=== PATIENT | female | born 1975 | race Caucasian/White ===

== ENCOUNTER → 2022-02-12 15:09 | Outpatient (BNVA) | payer OTHER, SELFPAY | PROVIDERS: PCP Family Medicine; Visit Provider Physician Assistant Surgical | DX: Z13.89 Encounter for screening for other disorder (principal) ==

== ENCOUNTER 2022-02-15 09:04 | Outpatient (REF) | payer OTHER, SELFPAY ==
[2022-02-18 11:32] LABS: H Pylori Breath Test Negative (Negative)
== END 2022-02-15 09:05 | disposition home or self-care (01) ==
LOC: CF 09:04
PROVIDERS: Visit Provider Physician Assistant Surgical
DX: E66.01 Morbid (severe) obesity due to excess calories (principal); Z68.42 Body mass index [BMI] 45.0-49.9, adult
CPT/HCPCS: 36415; 83013

== ENCOUNTER 2022-02-20 07:18 | Outpatient (REF) | payer OTHER, SELFPAY ==
--- NOTE | 2022-02-20 07:26 | ECG_ITS ---
Test Reason : E66.01 Blood Pressure : / mmHG Vent. Rate : 074 BPM Atrial Rate : 074 BPM P-R Int : 164 ms QRS Dur : 082 ms QT Int : 414 ms P-R-T Axes : 042 -31 034 degrees QTc Int : 459 ms Normal sinus rhythm Left axis deviation Abnormal ECG No previous ECGs available Referred By: Vna Rosales Electronically Signed By:Zac Self
[2022-02-20 07:48] LABS: MANUAL DIFF FLAG NO
[2022-02-20 08:03] LABS: Basophils Percent Auto 0.6 % (0-2); Eosinophils Absolute Auto 0.3 X10*3/uL (0.0-0.4); Eosinophils Percent Auto 4.5 % (0-4); Hematocrit 44.1 % (37.0-47.0); Hemoglobin 14.6 g/dl (12.0-16.0); Imm Gran Abs Auto 0.01 X10*3/uL (0.00-0.03); Imm Gran Pct Auto 0.2 % (0.0-0.4); Lymphocytes Absolute Auto 1.8 X10*3/uL (1.2-4.9); Lymphocytes Percent Auto 27.9 % (20-40); Mean Corpuscular HGB Conc 33.1 g/dl (31.0-35.0); Mean Corpuscular Hemoglobin 29.1 pg (27.0-33.0); Mean Corpuscular Volume 87.8 fL (80.0-98.0); Mean Platelet Volume 9.7 fL (9.4-12.3); Monocytes Absolute Auto 0.5 X10*3/uL (0.1-1.2); Monocytes Percent Auto 7.2 % (2-11); Neutrophils Absolute Auto 3.8 x10*3/uL (2.0-8.3); Neutrophils Percent Auto 59.6 % (45-73); Platelet Count 226 X10*3/uL (160-400); Red Blood Count 5.02 X10*6/uL (4.20-5.50); White Blood Count 6.4 X10*3/uL (4.8-10.8)
[2022-02-20 08:34] LABS: Anion Gap 15 (12-20); Blood Urea Nitrogen 13 mg/dL (9-16); C Reactive Protein 1.48 mg/dL (< or = 0.50); Calcium 9.5 mg/dL (8.4-10.2); Carbon Dioxide 24 mmol/L (22-29); Chloride 102 mmol/L (96-108); Cholesterol 173 mg/dL; Estimated Glomerular Filt Rate > 60; Glucose Random 103 mg/dL (60-115); HDL Cholesterol 42 mg/dL; Iron 86 mcg/dL (30-160); LDL Cholesterol Calculated 116 mg/dl; Sodium 137 mmol/L (135-145); Triglycerides 77 mg/dL
[2022-02-20 08:37] LABS: Estimated Average Glucose 117 mg/dL; Hemoglobin A1c % 5.7 %
[2022-02-20 08:45] LABS: Percent Iron Saturation 22 % (15-50); Total Iron Binding Capacity 394 mcg/dL (228-428); Unsaturated Iron Binding 308 ug/dL
[2022-02-20 09:06] LABS: Folate 19.6 ng/mL (> or = 4.0); Vitamin B12 1169 pg/mL (200-900)
[2022-02-20 09:07] LABS: Ferritin 78 ng/mL (10-250); TSH reflex Free T4 2.32 uIU/mL (0.32-4.0)
[2022-02-21 16:01] LABS: Calcium (PTHI) 9.3 mg/dL (8.6-10.2); PTHI 37 pg/mL (16-77)
[2022-02-22 14:24] LABS: Vitamin D 25-OH Total 76.1 ng/mL (>30)
[2022-02-23 16:32] LABS: Zinc 85 mcg/dL (60-130)
[2022-02-24 10:07] LABS: Vitamin B1 12 nmol/L (8-30)
[2022-02-27 17:40] LABS: Vitamin A 52 mcg/dL (38-98)
== END 2022-02-20 07:19 | disposition home or self-care (01) ==
LOC: HO.LAB 07:18
PROVIDERS: PCP Family Medicine; Visit Provider Physician Assistant Surgical
DX: Z01.818 Encounter for other preprocedural examination (principal); E66.01 Morbid (severe) obesity due to excess calories
CPT/HCPCS: 36415; 80048; 80061; 82306; 82607; 82728; 82746; 83036; 83540; 83970; 84425; 84443; 84590; 84630; 85025; 86140; 93005

== ENCOUNTER → 2022-02-28 16:00 | Outpatient (BNVA) | payer OTHER, SELFPAY | PROVIDERS: PCP Family Medicine; Visit Provider Counselor Mental Health | DX: F50.81 Binge eating disorder (principal); G47.33 Obstructive sleep apnea (adult) (pediatric) | CPT/HCPCS: 90791 ==

== ENCOUNTER → 2022-03-07 08:17 | Outpatient (BNVA) | payer OTHER, SELFPAY | PROVIDERS: PCP Family Medicine; Visit Provider Dietitian, Registered | DX: E66.01 Morbid (severe) obesity due to excess calories (principal); Z71.3 Dietary counseling and surveillance | CPT/HCPCS: 97802 ==

== ENCOUNTER → 2022-03-14 16:00 | Outpatient (BNVA) | payer OTHER, SELFPAY | PROVIDERS: PCP Family Medicine; Visit Provider Counselor Mental Health | DX: G47.33 Obstructive sleep apnea (adult) (pediatric) (principal); F50.81 Binge eating disorder | CPT/HCPCS: 90834 ==

== ENCOUNTER 2022-03-16 08:02 | Outpatient (REF) | payer OTHER, SELFPAY ==
--- NOTE | ~2022-03-16 | XR_ITS ---
EXAMINATION: XR CHEST CLINICAL INFORMATION: Morbid obesity due to excess calories COMPARISON: None TECHNIQUE: 2 views of the chest were obtained. FINDINGS: Cardiac silhouette is normal in size. The lungs are well aerated. There is no lobar consolidation. No pleural effusion or pneumothorax. Mild degenerative changes of the spine. XR/XR chest 2V IMPRESSION: No acute pulmonary pathology.
== END 2022-03-16 08:03 | disposition home or self-care (01) ==
LOC: HO.XRAY 08:02
PROVIDERS: PCP Family Medicine; Visit Provider Physician Assistant Surgical
DX: E66.01 Morbid (severe) obesity due to excess calories (principal); E03.9 Hypothyroidism, unspecified; G47.30 Sleep apnea, unspecified
CPT/HCPCS: 71046

== ENCOUNTER 2022-04-04 09:32 | Outpatient (REF) | payer OTHER, SELFPAY ==
--- NOTE | ~2022-04-04 | US_ITS ---
EXAMINATION: US COMPLETE ABDOMEN WITH LIVER ELASTOGRAPHY CLINICAL INFORMATION: Obesity COMPARISON: None. TECHNIQUE: Real-time imaging of the abdominal viscera. Noninvasive ultrasound liver fibrosis assessment is performed using Lou ElastPQ point quantification shear wave elastography (2D-SWE) with a C5-2 MHz transducer. Multiple elastography samples are obtained. FINDINGS: PANCREAS: Normal. ABDOMINAL AORTA: The proximal, middle, and distal aortic segments are normal in caliber. INFERIOR VENA CAVA: Visualized portions are normal. LIVER: Liver echotexture is increased. Liver is normal in contour. The liver is enlarged.. No focal lesion or intrahepatic biliary duct dilatation. The right lobe measures 20 cm in length. The left lobe measures 12 cm in length. Portal flow is normal/hepatopedal Shear wave liver elastography median stiffness is 1.2 m/s (reference: normal median stiffness is 1.3 m/s or less). IQR/median stiffness to assess sampling precision is 0.3 (reference: good quality data set is IQR/median stiffness of 0.15 or less). GALLBLADDER: Gallbladder is normal in size. There are gallstones in the gallbladder. There may be adenomyomatosis of the gallbladder wall. Gallbladder wall does not appear thickened. COMMON BILE DUCT: Normal in caliber measuring 0.3 cm in diameter. RIGHT KIDNEY: Normal. No hydronephrosis. No renal calculi or focal parenchymal lesions. The kidney measures 11.2 cm in maximum dimension. LEFT KIDNEY: Normal. No hydronephrosis. No renal calculi or focal parenchymal lesions. The kidney measures 13 cm in maximum dimension. SPLEEN: Normal. The spleen measures 12.3 cm in maximum dimension. FREE FLUID: None. US/US abdomen comp w elastography IMPRESSION: 1. Impression: Enlarged echogenic liver probably representing fatty infiltration. Gallstones. 2. Liver elastography: Limited due to sampling error. REFERENCE: Society of Radiologists in Ultrasound Liver Stiffness Thresholds (2020): LIVER STIFFNESS THRESHOLDS: *Liver Stiffness equal or less than 1.3 m/s: High probability of being normal. *Liver Stiffness less than 1.7 m/s: In the absence of other known clinical signs, rules out compensated advanced chronic liver disease. *Liver Stiffness 1.7-2.1 m/s: Suggestive of compensated advanced chronic liver disease but need further test for confirmation. *Liver Stiffness over 2.1 m/s: Rules in compensated advanced chronic liver disease. *Liver Stiffness over 2.4 m/s: Suggestive of clinically significant portal hypertension. QUALITY OF DATA SET: *IQR/Median value equal or less than 0.15 implies a quality data set. *IQR/Median value over 0.15 implies a poor quality data set. SIGNIFICANT CHANGE FROM PRIOR EXAM: Significant change if liver stiffness measurement is 10% or greater from prior exam. OTHER CONSIDERATIONS: The stage of liver fibrosis may be overestimated in the setting of acute hepatitis, liver inflammation, elevated liver function tests, hepatic vascular congestion, obstructive cholestasis, non-fasting state, and infiltrative diseases such as amyloidosis and lymphoma. In some patients with NAFLD, the liver stiffness thresholds for compensated advanced chronic liver disease may be lower. In causes other than viral hepatitis and NAFLD, liver stiffness thresholds are not well established.
--- NOTE | ~2022-04-04 | FL_ITS ---
EXAMINATION: XR FLUOROSCOPY UPPER GI WITH AIR CLINICAL INFORMATION: Air-contrast upper GI examination. COMPARISON: None TECHNIQUE: Air-contrast upper GI examination. FINDINGS: There is normal apposition of the vocal cords while saying E . There is normal elevation of the soft palate while saying candy . Patient swallowed thin and thick barium and half-inch diameter barium tablet without difficulty. No nasopharyngeal reflux or tracheal aspiration. No Zenker's diverticulum or significant cricopharyngeal hypertrophy. There is normal esophageal motility without hiatal hernia or ulceration. No esophageal stricture identified. No gastroesophageal reflux was elicited including with water siphon test. The stomach demonstrates normal distensibility without abnormal mass or ulceration. There was no delay in gastric emptying. The duodenal bulb and sweep appeared unremarkable. FLUOROSCOPY TIME: 1.4 minutes DOSE AREA PRODUCT: 17.181 Gy-cm2 ([place]-centimeter squared) FL/FL upper GI w air IMPRESSION: Unremarkable examination.
== END 2022-04-04 09:33 | disposition home or self-care (01) ==
LOC: HO.US 09:32
PROVIDERS: Visit Provider Surgery
DX: E66.01 Morbid (severe) obesity due to excess calories (principal)
CPT/HCPCS: 74246; 76705; 76981

== ENCOUNTER → 2022-04-16 08:17 | Outpatient (BNVA) | payer OTHER, SELFPAY | PROVIDERS: PCP Family Medicine; Visit Provider Surgery | DX: E66.01 Morbid (severe) obesity due to excess calories (principal) ==

== ENCOUNTER → 2022-04-24 08:32 | Outpatient (REF) | payer OTHER, SELFPAY ==
--- NOTE | 2022-04-24 08:38 | CA_ITS ---
Transthoracic Echocardiogram Patient (Last, First, Middle): Ignacia Dillon, Gender: Female Date of : 1975 Age: 47 Procedure Date: 04/24/2022 Procedure Type: Transthoracic Echocardiogram Location: OP Height: 160.02 cm Weight: 116.58 kg BSA: 2.15 m2 Heart Rate: bpm BP: 110 / 70 mmHg Meter Tester Polyphase: VH/TO Referring MD: Demarco Nash MD Symptoms: R94.31 - Abnormal electrocardiogram [ECG] [EKG] Study Quality: Fair/Contrast ECG Rhythm: Sinus Conclusions: - The left ventricular systolic function is normal. The calculated ejection fraction is 62% by biplane method. - No obvious valvular pathology seen on this study. - There is mild dilatation of the ascending aorta measuring 3.80 cm. - Small plaque is seen in the sino tubular ridge. Findings Procedure Information Contrast agent, definity, is being given per protocol without apparent complications. Left Ventricle Normal left ventricular cavity size. There is mildly increased left ventricular wall thickness. The left ventricular systolic function is normal. The calculated ejection fraction is 62% by biplane method. There is no evidence of regional wall motion abnormalities. Diastolic function is normal for age. Right Ventricle Normal right ventricular cavity size and systolic function. Atria Both atria are normal in size. Aortic Valve There is a normal trileaflet aortic valve. There is no aortic valve stenosis. There is no aortic valve regurgitation. Mitral Valve The mitral valve appears normal. There is no mitral valve regurgitation. There is no mitral valve stenosis. Pulmonic Valve The pulmonic valve is likely normal. Tricuspid Valve There is mild tricuspid valve regurgitation. The pulmonary artery systolic pressure is normal. Great Vessels There is mild dilatation of the ascending aorta measuring 3.80 cm. Small plaque is seen in the sino tubular ridge. Venous The inferior vena cava is normal in size and collapses greater than 50% with inspiration. Pericardium/Pleural There is no evidence of pericardial effusion. Prior Study Comparison No prior study available for comparison. Recommendations, Care & Conclusions No obvious valvular pathology seen on this study. Measurements 2D Linear Measurements IVSd: 1.24 0.6-0.9/0.6-1.0 cm LVIDd: 4.58 3.9-5.3/4.2-5.9 cm LVIDd Index: 2.13 2.4-3.2/2.2-3.1 cm/m2 LVIDs: 2.89 2.0-3.6 cm LVPWd: 1.24 0.7-1.1 cm LA Diam: 3.40 2.7-3.8/3.0-4.0 cm LAIDs Index: 1.58 1.5-2.3 cm/m2 LV Mass: 266.06 67-162/88-224 g LV Mass Index: 123.75 43-95/49-115 g/m2 LVOT Diam: 2.40 3.0+(-)1.3 cm 2D Systolic Function EF 4C: 59.80 >55% EF 2C: 62.60 >55% EF BiP: 61.70 >55% Mitral Valve MV Pk E: 0.91 MV PK A: 0.63 MV Decel Time: 227.00 E/A: 1.50 E'Lateral: 9.79 E'Medial: 8.81 E/E' Med: 10.40 E/E' Lat: 9.30 PHT: 67.00 MVA PHT: 3.28 Decel Ventura: 4.01 Aortic Valve AoV Pk Yvan: 1.64 AoV Mn Yvan: 1.15 AoV VTI: 0.41 AoV Pk Grad: 11.00 Aov Mn Grad: 6.00 WEI Cont.VTI: 2.67 LVOT LVOT Pk Yvan: 0.89 LVOT Mn Yvan: 0.64 LVOT VTI: 0.24 LVOT Pk Grad: 3.00 LVOT Mn Grad: 2.00 LVOT Diam: 2.40 LVOT Area: 4.52 Diastolic Function MV Pk E: 0.91 MV Pk A: 0.63 E/A: 1.50 E'Medial: 8.81 E/E' Med: 10.40 E' Laterial: 9.79 E/E' Lat: 9.30 Right Ventricle TAPSE (mm): 27.70 TVS' Yvan: 13.80 Tricuspid Valve TR Pk Yvan: 2.31 TR Pk Grad: 21.00 RA Press: 3.00 RVSP: 24.00 Great Vessels Aorta Sinus of Valsalva: 3.37 2.0-3.[address] Ridge: 2.60 1.7-3.4 cm Ao Asc: 3.80 2.1-3.4 cm Updated in Other Vendor System with Status of Final Jean Robles MD electronically signed on 04/25/2022 9:36:18 AM with status of Final
--- NOTE | 2022-04-24 08:38 | CA_ITS ---
Acquisition Time: 2022-04-24 10:05:28 Total Exercise Time: 00:07:33 Test Indications: PREOP ABN EKG Medications: SEE CHART Protocol: MONIK Max HR: 153 BPM 87% of Pred: 174 BPM Max BP: 164/082 mmHG Max Work Load: 9.4 METS Exercise stress test with exercise 7 min 33 sec of Monik protocol achieving 88% MPHR, with moderate shortness of breath, without arrythmia, with normotensive response to exercise, without EKG changes meeting criteria for ischemia. In recovery her breathing returned to baseline normal. Test reviewed with Dr Self. Referred By: Demarco Nash Overread By: MARCO GONG
== END ==
LOC: HO.CARD 08:32
PROVIDERS: PCP Family Medicine; Visit Provider Surgery
DX: Z01.818 Encounter for other preprocedural examination (principal); R94.31 Abnormal electrocardiogram [ECG] [EKG]
CPT/HCPCS: 93017; 93306; Q9957

== ENCOUNTER 2022-07-12 08:06 | Outpatient (REF) | payer OTHER, SELFPAY | END 2022-07-12 08:07 | disposition home or self-care (01) | LOC: HO.LAB 08:06 | PROVIDERS: PCP Family Medicine; Visit Provider Physician Assistant Surgical | DX: Z13.89 Encounter for screening for other disorder (principal) ==

== ENCOUNTER 2022-07-20 12:04 | Inpatient (IN) | payer OTHER, SELFPAY ==
[2022-07-11 10:34] VITALS: BMI 44.7
[2022-07-12 08:22] LABS: MANUAL DIFF FLAG NO
[2022-07-12 08:44] LABS: Basophils Percent Auto 0.5 % (0-2); Eosinophils Absolute Auto 0.2 X10*3/uL (0.0-0.4); Eosinophils Percent Auto 3.3 % (0-4); Hematocrit 41.9 % (37.0-47.0); Hemoglobin 14.3 g/dl (12.0-16.0); Imm Gran Abs Auto 0.02 X10*3/uL (0.00-0.03); Imm Gran Pct Auto 0.3 % (0.0-0.4); Lymphocytes Absolute Auto 1.7 X10*3/uL (1.2-4.9); Lymphocytes Percent Auto 29.1 % (20-40); Mean Corpuscular HGB Conc 34.1 g/dl (31.0-35.0); Mean Corpuscular Hemoglobin 29.7 pg (27.0-33.0); Mean Corpuscular Volume 86.9 fL (80.0-98.0); Monocytes Absolute Auto 0.4 X10*3/uL (0.1-1.2); Monocytes Percent Auto 7.1 % (2-11); Neutrophils Absolute Auto 3.5 x10*3/uL (2.0-8.3); Neutrophils Percent Auto 59.7 % (45-73); Platelet Count 186 X10*3/uL (160-400); Red Blood Count 4.82 X10*6/uL (4.20-5.50); Red Cell Distribution Width 12.9 % (11.0-16.0); White Blood Count 5.8 X10*3/uL (4.8-10.8)
[2022-07-12 08:49] LABS: INTERNATIONAL NORM RATIO 1.1 (0.9-1.1); Prothrombin Time 12.7 SEC (10.0-13.1)
[2022-07-12 08:52] LABS: Partial Thromboplastin Time 33.2 SEC (26.0-36.4)
[2022-07-12 09:01] LABS: Estimated Average Glucose 103 mg/dL; Hemoglobin A1c % 5.2 %
[2022-07-12 09:17] LABS: Alanine Aminotransferase 22 U/L (0-31); Albumin Level 4.5 g/dL (3.5-5.0); Alkaline Phosphatase 60 U/L (39-117); Anion Gap 14 (12-20); Aspartate Amino Transferase 21 U/L (5-31); Bilirubin Direct 0.3 mg/dL (0.0-0.5); Bilirubin Total 0.7 mg/dL (0.0-1.0); Blood Urea Nitrogen 17 mg/dL (9-16); C Reactive Protein 1.43 mg/dL (< or = 0.50); Calcium 9.3 mg/dL (8.4-10.2); Carbon Dioxide 29 mmol/L (22-29); Chloride 102 mmol/L (96-108); Cholesterol 180 mg/dL; Creatinine Clr Calc Pharmacy 99.3; Estimated Glomerular Filt Rate > 60; Glucose Random 89 mg/dL (60-115); HDL Cholesterol 46 mg/dL; LDL Cholesterol Calculated 120 mg/dl; Potassium 4.3 mmol/L (3.3-5.1); Sodium 141 mmol/L (135-145); Total Protein 7.1 g/dL (6.5-8.0); Triglycerides 70 mg/dL
[2022-07-12 09:28] LABS: Insulin 6 uU/mL (2-29)
--- NOTE | 2022-07-14 15:53 | MHC.SHP ---
Pre-Procedural Eval Section A Date of Service: 07/14/22 The patient is an INPATIENT: Yes The History & Physical has been completed within 30 days and I have reviewed it.: Yes Section B Chief Complaint: obesity Relevant Family History (Specify if Yes): No Relevant Social History: None Present Medications: None Medical History: No relevant PMH History of Previous Operations: No relevant previous surgery Allergies: Allergies Allergy/AdvReac Type Severity Reaction Status Date / Time No Known Allergies Allergy Verified 07/11/22 10:03 Review of Systems Sugical H&P ROS: Negative: Constitution, Cardiovascular, Respiratory, Neurological, Psychiatric, Hem-Onc, Allergic/Immunologic, Gastrointestinal, Genitourinary, Musculoskeletal, Integumentary, Endocrine and Eyes/Ears/Nose/Throat Exam Surgical H&P Exam: Normal: HEENT, Normal: Heart, Normal: Lungs, Normal: Extremities, Normal: Abdomen, Normal: Skin and Normal: Neurological Plan Diagnosis/Plan: Unchanged I have reviewed the history and physical and performed a pertinent physical examination on my patient. No changes have occurred unless specified.
--- NOTE | 2022-07-19 09:15 | HO.ANESPROP2 ---
Documented by User: Karen Saldana NP 07/19/22 09:17 HPI - Anesthesia Eval Consult details Narrative: 47yo F for Gastrectomy Sleeve,EGD,poss diaphragmatic hernia,poss ventral hernia,poss open, PMFSH Active Problems Active Problems: All Active Problems (Updated 07/11/22 @ 10:34 by Sherrill Nath, RN) Morbid obesity (Acute) CHICA (obstructive sleep apnea) (Acute) Hypothyroid (Acute) Binge-eating disorder, mild (Acute) Abnormal EKG (Acute) Pre-op exam (Acute) Sleep apnea treated with nocturnal BiPAP (Acute) Past Medical History Medical History (Updated 07/11/22 @ 10:34 by Sherrill Nath, RN) Environmental allergies History of COVID-19 History of Lyme disease Hypothyroidism Sleep apnea treated with nocturnal BiPAP Family History Family History Mother Hypertension CHF (congestive heart failure) Father Hypertension Renal cancer Surgical History Surgical History (Updated 07/11/22 @ 10:34 by Sherrill Nath RN) History of carpal tunnel release History of nasal surgery Hx of section Social History Social History Are you a primary care worker to a significant other at home: No Do you presently have visiting nurse or other home services: No Alcohol intake: current Alcohol intake frequency: holidays/special occasions only Patient Tobacco Use Status: Never used Tobacco Second Hand Smoke Exposure: No Meds Allergies Allergy/AdvReac Type Severity Reaction Status Date / Time No Known Allergies Allergy Verified 07/11/22 10:03 Home Medications Medication Instructions Recorded Confirmed Last Taken Type cholecalciferol (vitamin D3) 25 25 mcg PO DAILY 02/13/22 07/20/22 07/19/22 History mcg (1,000 unit) capsule fexofenadine 180 mg tablet 180 mg PO DAILY 02/13/22 07/11/22 07/19/22 History (Antoinette Allergy) mecobalamin (vitamin B12) 5,000 mcg PO DAILY 02/13/22 07/04/22 02/13/22 History mcg disintegrating tablet multivitamin 1 tab PO DAILY 02/13/22 07/11/22 07/19/22 History solriamfetol 75 mg tablet (Sunosi) 75 mg PO DAILY 02/13/22 07/11/22 07/19/22 History thyroid (pork) 90 mg tablet 90 mg PO DAILY 02/13/22 07/11/22 07/20/22 History ([place] Thyroid) albuterol sulfate 90 mcg/actuation 2 puff inhalation Q6H PRN wheezing 07/11/22 07/20/22 12/08/21 History aerosol inhaler Exam Exam Date and Time: July 19, 2022 0915 Height,Weight and Vital Signs: Height 5 ft 2.5 in Weight 112.854 kg Pertinent Lab Results Pertinent Lab Results: Laboratory Tests 07/12/22 07/12/22 07/12/22 08:15 08:15 08:15 WBC 5.8 RBC 4.82 Hgb 14.3 Hct 41.9 MCV 86.9 MCH 29.7 MCHC 34.1 RDW 12.9 Plt Count 186 MPV 10.0 Immature Gran % (Auto) 0.3 Neut % (Auto) 59.7 Lymph % (Auto) 29.1 [place] % (Auto) 7.1 Eos % (Auto) 3.3 Baso % (Auto) 0.5 Lymph # (Auto) 1.7 [place] # (Auto) 0.4 Eos # (Auto) 0.2 Baso # (Auto) 0.0 Abs Immat Gran (auto) 0.02 Absolute Neuts (auto) 3.5 Absolute Nucleated RBC 0.000 Nucleated RBC % (auto) 0.0 PT 12.7 INR 1.1 APTT 33.2 Sodium 141 Potassium 4.3 Chloride 102 Carbon Dioxide 29 Anion Gap 14 BUN 17 H Creatinine 0.84 Estim Creat Clear Calc 99.3 Estimated GFR > 60 Random Glucose 89 Estimat Average Glucose Hemoglobin A1c % Insulin Level Calcium 9.3 Total Bilirubin 0.7 Direct Bilirubin 0.3 AST 21 ALT 22 Alkaline Phosphatase 60 C-Reactive Protein 1.43 H Total Protein 7.1 Albumin 4.5 Triglycerides 70 Cholesterol 180 LDL Cholesterol, Calc 120 HDL Cholesterol 46 TSH 1.90 Blood Type Antibody Screen 07/12/22 07/12/22 07/12/22 08:15 08:15 08:15 WBC RBC Hgb Hct MCV MCH MCHC RDW Plt Count MPV Immature Gran % (Auto) Neut % (Auto) Lymph % (Auto) [place] % (Auto) Eos % (Auto) Baso % (Auto) Lymph # (Auto) [place] # (Auto) Eos # (Auto) Baso # (Auto) Abs Immat Gran (auto) Absolute Neuts (auto) Absolute Nucleated RBC Nucleated RBC % (auto) PT INR APTT Sodium Potassium Chloride Carbon Dioxide Anion Gap BUN Creatinine Estim Creat Clear Calc Estimated GFR Random Glucose Estimat Average Glucose 103 Hemoglobin A1c % 5.2 Insulin Level 6 Calcium Total Bilirubin Direct Bilirubin AST ALT Alkaline Phosphatase C-Reactive Protein Total Protein Albumin Triglycerides Cholesterol LDL Cholesterol, Calc HDL Cholesterol TSH Blood Type A Positive Antibody Screen NEGATIVE Narrative Narrative: EKG 01/2022 Vent. Rate : 074 BPM ? ? Atrial Rate : 074 BPM ?? P-R Int : 164 ms? QRS Dur : 082 ms ? ? QT Int : 414 ms ? ? ? P-R-T Axes : 042 -31 034 degrees ?? QTc Int : 459 ms ? Normal sinus rhythm Left axis deviation Abnormal ECG No previous ECGs available ECHO 04/2022 Conclusions: - The left ventricular systolic function is normal.? The ? calculated ejection fraction is 62% by biplane method. ? - No obvious valvular pathology seen on this study.? - There is mild dilatation of the ascending aorta measuring 3.80 cm.? - Small plaque is seen in the sino tubular ridge.? ? ? Exercise Stress 04/2022 Protocol: DION ? Max HR: 153 BPM? 87% of? Pred: 174 BPM Max BP: 164/082 mmHG Max Work Load: 9.4 METS ? Exercise stress test with exercise 7 min 33 sec of Dion protocol achieving 88% ?MPHR, with moderate shortness of breath, without arrythmia, with normotensive ?response to exercise, without EKG changes meeting criteria for ischemia. In ?recovery her breathing returned to baseline normal. Test reviewed with Dr Henry. Assessment and Plan Assessment Anesthesia Assessment: Chart Reviewed Documented by User: Oliver Martini MD 07/20/22 08:45 [facility] Past Medical History Medical History (Updated 07/11/22 @ 10:34 by Sherrill Nath, RN) Environmental allergies History of COVID-19 History of Lyme disease Hypothyroidism Sleep apnea treated with nocturnal BiPAP Family History Family History Mother Hypertension CHF (congestive heart failure) Father Hypertension Renal cancer Family history of problems with anesthesia: No Surgical History Surgical History (Updated 07/11/22 @ 10:34 by Sherrill Nath RN) History of carpal tunnel release History of nasal surgery Hx of section History of Problems with Anesthesia: No Social History Social History Are you a primary care worker to a significant other at home: No Do you presently have visiting nurse or other home services: No Alcohol intake: current Alcohol intake frequency: holidays/special occasions only Patient Tobacco Use Status: Never used Tobacco Second Hand Smoke Exposure: No Meds Allergies Allergy/AdvReac Type Severity Reaction Status Date / Time No Known Allergies Allergy Verified 07/11/22 10:03 Home Medications Medication Instructions Recorded Confirmed Last Taken Type cholecalciferol (vitamin D3) 25 25 mcg PO DAILY 02/13/22 07/20/22 07/19/22 History mcg (1,000 unit) capsule fexofenadine 180 mg tablet 180 mg PO DAILY 02/13/22 07/11/22 07/19/22 History (Antoinette Allergy) mecobalamin (vitamin B12) 5,000 mcg PO DAILY 02/13/22 07/04/22 02/13/22 History mcg disintegrating tablet multivitamin 1 tab PO DAILY 02/13/22 07/11/22 07/19/22 History solriamfetol 75 mg tablet (Sunosi) 75 mg PO DAILY 02/13/22 07/11/22 07/19/22 History thyroid (pork) 90 mg tablet 90 mg PO DAILY 02/13/22 07/11/22 07/20/22 History ([place] Thyroid) albuterol sulfate 90 mcg/actuation 2 puff inhalation Q6H PRN wheezing 07/11/22 07/20/2222 History aerosol inhaler Exam Airway Mallampati Class: II TM Dist: >3cm Neck ROM: Full Assessment and Plan Assessment Anesthesia Assessment: Anesthesia Plan Discussed Final Anesthetic Review Family History of Problems with Anesthesia: No History of Problems with Anesthesia: No NPO: Yes ASA Class: III Final Preanesthetic Review: No Changes in Pt Med Stat, Meds/Allgs Chart Reviewed, Consent Obtained/Reviewed and Anes Risks/Benef Reviewed Patient Risk: Intermediate Procedure Risk: Intermediate Anesthetic Plan Anesthetic Plan: GA Disposition: Standard PACU
[2022-07-19 14:49] LABS: COVID-19 Test Negative (Negative)
[2022-07-20] VITALS (10 sets, daily range): BP systolic 122–144; BP diastolic 58–92; PULSE 81–98; RESP 14–20; TEMP 36–36.7; O2SAT 93–100
[2022-07-20 07:54] LABS: UPreg QC Valid YES; Urine Pregnancy NEGATIVE (NEGATIVE)
[2022-07-20] MEDS: Lactated Ringers 1,000 ML 100 ML IVCONT ×2 (08:04→18:36)
--- NOTE | 2022-07-20 09:25 | P.BOP_ITS ---
Brief Operative Note Date of Service: 07/20/22 Pre-op diagnosis: Morbid obesity with comorbidities (see below) Post-op diagnosis: same Procedure: INITIAL PATIENT BMI ON PRESENTATION AT OUR OFFICE: 49.9 kg/m2 LAST BMI BEFORE SURGERY: 43.5 kg/m2 COMORBIDITIES: hypothyroidism, sleep apnea, DJD, liver steatosis, gallbladder adenomyomatosis, LVH ?The patient presented to the Weight Management Program with significant obesity that was negatively impacting the patient's comorbidities as listed above.? The program is a phased program with a special focus on preoperative medical weight management to promote substantial weight loss and prepare the patients for the second phase of the program: bariatric surgery. The patient participated in an intensive weekly lifestyle ?intervention and exercise program during which the patient ?has lost between the initial office visit and the last preoperative visit 31.4 lbs, or 11.33% of initial actual body weight. It was deemed appropriate for the patient to now have bariatric surgery. In light of the current Covid-19 pandemic and the well documented strong association of obesity and increased risk of worse outcomes if infected with Covid-19 (REFERENCES: https://pubmed.ncbi.nlm.nih.gov/23757153/ ,? https://pubmed.ncbi.nlm.nih.gov/66402740/ ), any delay in undergoing bariatric surgery may lead to the patient's worsening health condition and increased?risk of more severe Covid-19 disease if infected. In addition a recent?study from [facility] published in JOSE A Surgery on 11/27/2021 ([email or web address]/[email or web address]) found that, among patients with obesity, substantial weight loss achieved with surgery was associated with improved outcomes of COVID-19 infection. The findings suggest that obesity can be a modifiable risk factor for the severity of COVID-19 infection. In addition, the patient met the BMI-criteria for bariatric surgery based on the BMI on initial presentation. The patient should not be penalized for achieving such weight loss because ?it is not sustainable long-term without surgical intervention and it was achieved in preparation for bariatric surgery ?under my direction and based on my published research ([email or web address]).[email or web address] and? https://www.soard.org/article/[email or web address])32530-X/pdf ) ?that a 10% preoperative weight loss improves long-term weight loss after surgery and reduces perioperative complications.? Insurance carriers such as [facility] have endorsed my recommendations ?and have included in their policies criteria to include a 10% preoperative weight loss requirement. PROCEDURE: Esophago-gastroscopy, laparoscopic sleeve gastrectomy and laparoscopic gastropexy INDICATIONS: This is a 47 year-old female who was electively scheduled for laparoscopic, possibly open sleeve gastrectomy. The risks and complications of the procedure were discussed with the patient in advance, particularly the possibility of ; pulmonary embolism; staple line leak; bleeding; GERD; cardiac, pulmonary, or renal complications; as well as long-term problems such as insufficient weight loss, vitamin deficiency, strictures, or ulcers. The patient understood all the risks, and was in agreement to proceed with surgery. DESCRIPTION OF PROCEDURE: After informed consent was obtained from the patient, the patient was given preoperative antibiotics, and was transferred to the operating room. After successful induction of general anesthesia, pneumatic compression devices were placed on both lower extremities. An upper endoscopy was performed next. The oropharynx and esophagus appeared to be within normal limits. There was no diaphragmatic hernia present consistent with the findings of the preoperative upper GI. The stomach was entered. Then after all fluid and air were suctioned and the stomach was fully decompressed, the scope was withdrawn and secured in the mid esophagus. The patient was then prepped and draped in the usual sterile manner, and abdominal access was established at the right upper quadrant with the Pamela technique. A 12 mm blunt port was inserted, and the abdomen was insufflated with CO2 to a pressure of 15 mmHg. Under direct visualization, additional ports were placed, specifically two 5 mm Versi-step ports to the left upper quadrant, and a 5 mm Versi-Step port to the right upper quadrant. 1% lidocaine plain was used to infiltrate all port sites as well as all fascia defects. Following that, the patient was placed in a steep reverse Trendelenburg position. An additional 5 mm port was placed to the right flank for the Mediflex retractor that was used to retract the left lobe of the liver. The gastro-esophageal fat pad was opened with the ultrasonic device (Thunderbeat, Olympus) and the anterior esophagus and hiatus were exposed. The angle of His was opened with the ultrasonic device the fundus of the stomach from any diaphragmatic and splenic attachments. I then opened the gastrocolic ligament between the transverse colon and the greater curvature of the stomach with the ultrasonic device to enter the lesser sac and facilitate the ligation of the short gastric vessels. I started at a mid-point along the greater curvature and using the Thunderbeat, all short gastric vessels were divided all the way to the angle of His until the left kymberly was completely dissected at its entirety. I then divided the gastro-colic ligament distally to a distance of about 3-4 cm proximal to the pylorus. The stomach was then divided transversely with one Endo RODRIGUEZ-45 purple, one RODRIGUEZ- 45 orange loads, two RODRIGUEZ-60 purple loads and 2 RODRIGUEZ-60 articulating orange loads using the AEON stapler and loads. Every effort was made that the gastric sleeve had a tubular shape and an even caliber throughout. Once the sleeve resection was completed, the staple line of the gastric sleeve was reinforced with Hemoclips. The resected stomach was retrieved without difficulty from the Pamela port. A gastropexy was then performed in order to prevent postoperative GERD and partial gastric volvulus. Several interrupted 2.0 Surgidac sutures were placed between the sleeve's staple line and the previously divided greater omentum and gastro-colic ligament using the Endo-Stitch device. ?An upper endoscopy was performed. There was no narrowing at the GE junction. T he scope was easily advanced all the way to the pylorus which was clearly visualized. There was no narrowing anywhere and the sleeve's caliber was even throughout. The sleeve's staple line was inspected and there was no evidence of ischemia, bleeding or dehiscence. At that point the gastroscope was withdrawn from the patient?s mouth while we were decompressing the bowel and the stomach from any remaining air. I looked into the lesser sac to see how the sleeve was situating and it was situating well. There was no bleeding from the staple line, spleen, or short gastric vessels. The Mediflex retractor was removed, and the undersurface of the liver was inspected and there was no bleeding. The patient was placed in supine position. I closed the fascial defect of the 12 mm port site with a figure of eight #1 Polysorb suture. Then 60ml of Rupivacaine plain with 10 mg of Dexamethasone were used to infiltrate the fascial closure as well as all skin incisions. A total of 7ml of Zynrelef was applied in the Pamela wound. At this point, the abdomen was deflated, all ports were removed under direct vision, and no bleeding was noted from any of the port sites. The skin incisions were irrigated with saline and were closed with 4-0 absorbable monofilament sutures. Steri-Strips and OpSites were used to cover all incisions. The patient was extubated and was transferred in stable condition to the recovery room for further care. I was present and performed all patel parts of the procedure. Mr Rosales was the elder assistant. There were no residents to assist with this case. Myles Nash MD, PhD, FACS Surgeon: Demarco Nash MD Anesthesia: GETA, local and other (TAP block and 7ml Zynrelef) Was an Operations Accountant used for this Procedure?: No Operations Accountant: Van Rosales Estimated blood loss (mL): 0 IV fluids (mL): 2,000 Urine output (mL): 0 (No Cadena to record) Pathology: other (Stomach) Condition: stable Disposition: PACU
[2022-07-20] MEDS: ceFAZolin Sodium/Dextrose,Iso 2 GM/50 ML PIGGYBACK IV ×2 (09:31→14:50)
--- NOTE | 2022-07-20 12:07 | PHA.MEDREC ---
Pharmacy Consult ? Medication Reconciliation Pharmacy has completed the medication reconciliation. Reviewed med rec done by nursing
--- NOTE | 2022-07-20 12:15 | P.DS_ITS ---
DS: Providers Provider Date of Service: 07/21/22 Date of admission: 07/20/22 12:04 Primary care physician: Annabel Flores MD DS: Summary Hospital Course Hospital Course: ADMITTING DIAGNOSIS: morbid obesity, CHICA, hypothyroid ? DISCHARGE DIAGNOSIS: same, s/p laparoscopic sleeve gastrectomy ? PAST SURGICAL HISTORY: carpal tunnel release, cesarian section ? PROCEDURE: upper endoscopy, laparoscopic sleeve gastrectomy ? DISCHARGE SUMMARY: ? History of Present Illness: ? The patient is a?47 year-old woman with a BMI of?79.9 kg/m2 and associated co- morbidities as described above. The patient had extensive work-up,lost?25.6 lbs preoperatively and was electively scheduled for laparoscopic, possible open sleeve gastrectomy and gastropexy. Risks and complications of the surgery were discussed with the patient in advance, particularly the possibility of , pulmonary embolism, anastomotic leak, bleeding, bowel injury, GERD, cardiac, renal or pulmonary complications. The patient understood all the risks and was in agreement with the surgical plan. ? Hospital Course: ? The patient underwent an uneventful laparoscopic sleeve gastrectomy with gastropexy on the day of admission. Postoperatively, the patient was transferred to the surgical floor. The patient received IV Acetaminophen and IV dilaudid for pain control. Patient was started on bariatric phase 1 diet POD #0. On postoperative day one, the patient was feeling well without nausea, vomiting, fevers, or tachycardia. The patient had some mild incisional pain and the abdom en was soft. ? On the morning of postoperative day one, the patient was continued on 1 ounce of water or ice every half hour. During the day, the patient did fairly well, having some incisional pain, but able to ambulate adequately and to tolerate liquids well. ? Since the patient is doing well, we decided that the patient was ready to be discharged. The patient was given instructions to follow-up with me next week and to call my office for any fever over 101, persistent abdominal pain, nausea, vomiting, GERD, symptoms of DVT such as calf tenderness, or leg swelling, or pulmonary embolism such as chest pain or shortness of breath. The patient was also instructed to drink 40-60 ounces of liquids per day using the 1-ounce cups. The patient had been given prescriptions for Tylenol for pain, Zofran prn for nausea, and pantoprazole and carafate previously. The patient was encouraged to ambulate and use the incentive spirometer. The patient was allowed to shower, but no baths, and encouraged to stay active at home. All of these instructions were given to the patient personally. All questions were answered and the patient understood all instructions, the instructions were also given to the patient in print. Time Spent with Patient Time attestation: Total time spent providing and/or coordinating discharge services: Discharge coordination time: Less than 30 minutes Quality: Safe Use of Opioids Does Pt have an Active Cancer Diagnosis on the Problem List?: No Quality: Stroke Does the patient have a stroke diagnosis?: No Physical Exam Vital Signs: Vital Signs: Last Vital Signs Temp 97 F 07/20/22 07:35 Pulse 90 07/20/22 07:35 Resp 19 07/20/22 07:35 BP 139/92 H 07/20/22 07:35 Pulse Ox 97 07/20/22 07:35 O2 Del Method 07/20/22 07:35 BMI result Body Mass Index 44.7 DS: Data Data Completed and Pending Pending studies at discharge: Pending at discharge 07/20/22 11:16 Surgical [PTH] Routine Labs on day of discharge: Laboratory Results - last 24 hr 07/19/22 07/20/22 14:30 07:24 Urine Test NEGATIVE COVID-19 (RENALDO) Negative COVID-19 Clin Com See Note Discharge Plan Discharge Patient Disposition: Home, Self-Care Discharge Diagnosis: s/p laparoscopic sleeve gastrectomy Referrals: Annabel Flores MD [Primary Care Provider] - 1 Week Discharge Medications: Continued albuterol sulfate 90 mcg/actuation HFA aerosol inhaler 2 puff inhalation Q6H PRN (Reason: wheezing) thyroid (pork) [[place] Thyroid] 90 mg tablet 90 mg PO DAILY fexofenadine [Antoinette Allergy] 180 mg tablet 180 mg PO DAILY Sunosi 75 mg tablet 75 mg PO DAILY pantoprazole 40 mg tablet,delayed release (DR/EC) 40 mg PO DAILY Qty: 30 2RF ondansetron HCl 4 mg tablet 4 mg PO Q6H PRN (Reason: nausea and vomiting) Qty: 20 0RF Rx Instructions: pt sts med for post op nausea Discontinued multivitamin Tablet 1 tab PO DAILY mecobalamin (vitamin B12) 5,000 mcg tablet,disintegrating PO DAILY cholecalciferol (vitamin D3) 25 mcg (1,000 unit) capsule 25 mcg PO DAILY Discharge Orders: Discharge Order (Routine); Ordered 07/21/22 Ordered By: Kalee Garcia Activity on Discharge: No heavy lifting Stand Alone Forms: Patient Portal Discharge page Care Plan Goals: weight loss Health Concerns: morbid obesity Plan of Treatment: No tub baths, sex or returning to work until discussed at first post op appointment. No exercise, alcohol, tobacco or illegal drug use. Continue to use incentive spirometer hourly while awake. Walk in home for 5- 10 minutes every 2 hours during the first week. Follow all instructions in the bariatric handbook and call with any questions.Discharge Instructions 1. Please call your doctor or come back to the emergency room should any new symptoms arise. 2. You will receive a courtesy call from [facility] 24-48 hours after discharge. 3. Activity: abstain from alcohol, practice limited stair climbing, no bending, no driving, no exercise, no illicit substances, no lifting, no sex, no tub bath, no work. 4. Diet: continue as discussed with Dr. Nash. 5. Dressing Change/Wound Care: Your incision is covered by clear bandages and gauze underneath. If the area is tender, you may apply an ice pack for short intervals (no more than 20 minutes on, followed by at least 20 minutes off). Do not apply heat. Do not use creams, lotions, or topical antibiotics unless instructed to do so by your surgeon. These can cause infection or allergic reaction. 6. Call your doctor if: - Your temperature exceeds 101.5 F - You experience excessive pain or swelling - You have an unexpected reaction to medication - You have excessive bleeding - You experience continued vomiting/nausea - Your incision begins to separate - Your incision shows signs of infection such as increased redness, swelling, excessive pain, heat, or drainage (light blood or clear fluid is normal) 7. General instructions: No lifting greater than 5 lbs for the next 4 weeks[address] driving within 24 hours of taking narcotic pain medications. If you do not move your bowels in the next 2 days, please take milk of magnesia over the counter. Please follow the post op diet and do not advance your diet until you are seen in the office in about 2 weeks. Please walk around your home every hour or two to prevent blood clots from forming in your legs. You do not need to wake from sleeping to walk. Please sleep in a bed or couch to prevent kinking at the hips and knees. Please take your incentive spirometer (your lung junction maker) home with you and use it for the next few days to prevent pneumonias. You may shower, no hot tubs, baths or swimming pools. Please call the office with any questions or concerns such as increasing abdominal pain, fever, chills, shortness of breath, chest pain, leg pain or swelling, or redness or drainage from your incisions. Please stay on stage 3 diet which includes sugar free clear liquids such as ice pops and jello and broth and crystal light. Avoid all carbonation. Please drink 3 protein shakes with at least 25-30 grams of protein daily or 3 of the Celebrate 4:1 shakes which can be purchased in our office. The Celebrate shakes have all of the bariatric vitamins you need if you consume these shakes. If you are drinking other protein shakes, you will need to purchase the Celebrate mul tivitamins and calcium that we provide in the office (they will provide all the vitamins you need). Please make sure you are consuming at least 40-60 ounces of water in addition to your 3 protein shakes daily. Do not hesitate to contact the office with any questions at . The patient's medical history has been reviewed and they are considered low risk for post op DVT and therefore DVT prophylaxis is not considered necessary. Travel after surgery was reviewed. The patient has not disclosed any travel plans during the first 30 days after surgery and they have been advised that within the first 30 days after surgery any bus, plane, train or car travel over 2 hours in duration is contraindicated due to the possibility of developing blood clots from immobility. Any travel, needs to include periods of ambulation of 10 minutes in duration every 2 hours.? The patient was instructed to discuss any plans for travel during this period with their bariatric surgeon. Assessment: stable s/p laparoscopic sleeve gastrectomy Discharge Date/Time: 07/21/22 11:15
[2022-07-20 12:35] LABS: Hematocrit 44.1 % (37.0-47.0); Hemoglobin 14.9 g/dl (12.0-16.0)
[2022-07-20] MEDS: Famotidine/PF 20 MG/2 ML VIAL IVPUSH ×2 (12:35→21:11)
[2022-07-20 12:53] LABS: Anion Gap 17 (12-20); Blood Urea Nitrogen 9 mg/dL (9-16); Calcium 8.9 mg/dL (8.4-10.2); Carbon Dioxide 25 mmol/L (22-29); Chloride 104 mmol/L (96-108); Creatinine Clr Calc Pharmacy 95.9; Estimated Glomerular Filt Rate > 60; Glucose Random 110 mg/dL (60-115); Potassium 4.7 mmol/L (3.3-5.1); Sodium 141 mmol/L (135-145)
[2022-07-20] MEDS: Lactated Ringers 1,000 ML 125 ML IVCONT ×2 (13:05→22:41)
[2022-07-20] MEDS: ondansetron HCL 4 MG/2 ML VIAL IVPUSH ×2 (14:50→21:11)
[2022-07-20] MEDS: 0.9 % Sodium Chloride Flush 3 ML SYRINGE IVFLUSH (17:31)
[2022-07-21 03:38] VITALS: BP 104/61; PULSE 69; RESP 16; TEMP 36.4; O2SAT 96
[2022-07-21] MEDS: ondansetron HCL 4 MG/2 ML VIAL IVPUSH (05:23)
[2022-07-21] MEDS: Lactated Ringers 1,000 ML 125 ML IVCONT (05:23)
[2022-07-21 06:49] LABS: MANUAL DIFF FLAG NO
[2022-07-21 06:56] LABS: Basophils Percent Auto 0.1 % (0-2); Eosinophils Percent Auto 0.1 % (0-4); Hematocrit 42.7 % (37.0-47.0); Hemoglobin 14.4 g/dl (12.0-16.0); Imm Gran Abs Auto 0.01 X10*3/uL (0.00-0.03); Imm Gran Pct Auto 0.1 % (0.0-0.4); Lymphocytes Absolute Auto 1.3 X10*3/uL (1.2-4.9); Lymphocytes Percent Auto 15.7 % (20-40); Mean Corpuscular HGB Conc 33.7 g/dl (31.0-35.0); Mean Corpuscular Hemoglobin 29.4 pg (27.0-33.0); Mean Corpuscular Volume 87.1 fL (80.0-98.0); Mean Platelet Volume 10.5 fL (9.4-12.3); Monocytes Absolute Auto 0.6 X10*3/uL (0.1-1.2); Monocytes Percent Auto 6.6 % (2-11); Neutrophils Absolute Auto 6.5 x10*3/uL (2.0-8.3); Neutrophils Percent Auto 77.4 % (45-73); Platelet Count 212 X10*3/uL (160-400); Red Cell Distribution Width 12.8 % (11.0-16.0); White Blood Count 8.5 X10*3/uL (4.8-10.8)
[2022-07-21 07:16] LABS: Anion Gap 17 (12-20); Blood Urea Nitrogen 9 mg/dL (9-16); Calcium 9.1 mg/dL (8.4-10.2); Carbon Dioxide 26 mmol/L (22-29); Chloride 103 mmol/L (96-108); Creatinine Clr Calc Pharmacy 117.5; Estimated Glomerular Filt Rate > 60; Glucose Random 103 mg/dL (60-115); Potassium 4.8 mmol/L (3.3-5.1); Sodium 141 mmol/L (135-145)
[2022-07-21 08:00] VITALS: BP 117/64; PULSE 73; RESP 18; TEMP 36.3; O2SAT 98
[2022-07-21 08:45] VITALS: O2SAT 98
[2022-07-21] MEDS: Famotidine/PF 20 MG/2 ML VIAL IVPUSH (09:24)
--- NOTE | 2022-07-21 15:07 | HO.POSTANES ---
Post Anesthesia Evaluation Post Anesthesia Evaluation Vital Signs: Vital Signs Temp Pulse Resp BP Pulse Ox O2 Del Method 07/21/22 08:45 98 Room Air 07/21/22 08:00 97.4 F 73 18 117/64 98 Room Air 07/21/22 03:38 97.5 F 69 16 104/61 96 BiPAP Anesthesia: General Endotracheal-GETA Mental Status: Awake Pain Control: Satisfactory Nausea/Vomiting: None Hydration: Adequate Anesthesia-Related Issues: No Anes. Related Issues
== END 2022-07-21 11:15 | disposition home or self-care (01) | DRG 621 ==
LOC: HO.SSSA 12:17 → HO.S3 12:42
PROVIDERS: Nurse Practitioner; Physician Assistant Surgical; Admitting Provider Surgery; PCP Family Medicine; Visit Provider Surgery
PROC: 0DB64Z3 Excision of Stomach, Percutaneous Endoscopic Approach, Vertical (ICD-10-PCS; CPT 43845; principal; 2022-07-20 09:00)
DX: E66.01 Morbid (severe) obesity due to excess calories (principal); E03.9 Hypothyroidism, unspecified; G47.30 Sleep apnea, unspecified; Z68.41 Body mass index [BMI] 40.0-44.9, adult; Z86.16 Personal history of COVID-19; Z79.899 Other long term (current) drug therapy
CPT/HCPCS: 36415; 80048; 80053; 80061; 81025; 82248; 83036; 83525; 84443; 85014; 85018; 85025; 85610; 85730; 86140; 86850; 86900; 86901; 87635; 88307; 88342; A4649; C9088; J0131; J0690; J1100; J1170; J2250; J2405; J2795; J3010

== ENCOUNTER → 2022-09-28 15:06 | Outpatient (BNVA) | payer OTHER, SELFPAY | PROVIDERS: PCP Family Medicine; Visit Provider Dietitian, Registered | DX: E66.9 Obesity, unspecified (principal) | CPT/HCPCS: 97803 ==

== ENCOUNTER → 2023-01-28 08:30 | Outpatient (BNVA) | payer OTHER, SELFPAY | PROVIDERS: PCP Family Medicine; Visit Provider Physician Assistant Surgical | DX: Z13.89 Encounter for screening for other disorder (principal) ==

== ENCOUNTER 2023-01-31 08:56 | Outpatient (REF) | payer OTHER, SELFPAY ==
[2023-01-31 11:10] LABS: Iron 185 mcg/dL (30-160); Percent Iron Saturation 53 % (15-50); Total Iron Binding Capacity 346 mcg/dL (228-428); Unsaturated Iron Binding 161 ug/dL
[2023-01-31 11:28] LABS: Ferritin 69 ng/mL (10-250); Folate 15.7 ng/mL (> or = 4.0); Vitamin B12 767 pg/mL (200-900); Vitamin D 25-OH Total 61.4 ng/mL (>30)
[2023-02-04 15:23] LABS: Zinc 74 mcg/dL (60-130)
[2023-02-05 13:32] LABS: Vitamin A 58 mcg/dL (38-98)
[2023-02-06 16:54] LABS: Vitamin B1 15 nmol/L (8-30)
== END 2023-01-31 08:57 | disposition home or self-care (01) ==
LOC: HO.LAB 08:56
PROVIDERS: PCP Family Medicine; Visit Provider Physician Assistant Surgical
DX: E66.9 Obesity, unspecified (principal); K80.20 Calculus of gallbladder without cholecystitis without obstruction
CPT/HCPCS: 36415; 82306; 82607; 82728; 82746; 83540; 84425; 84590; 84630

== ENCOUNTER 2023-02-13 09:02 | Outpatient (REF) | payer OTHER, SELFPAY ==
--- NOTE | ~2023-02-13 | US_ITS ---
EXAMINATION: US ABDOMEN COMPLETE CLINICAL INFORMATION: Obesity, unspecified. COMPARISON: US abdomen complete with liver elastography 04/04/2022. TECHNIQUE: Real-time imaging of the abdominal viscera. FINDINGS: PANCREAS: Normal. ABDOMINAL AORTA: The proximal, mid, and distal segments are normal in caliber. INFERIOR VENA CAVA: Visualized portions are normal. LIVER: Enlarged measuring 18.2 cm in length. The liver contour is normal. Increased parenchymal echogenicity. No focal hepatic lesion. There is no intrahepatic biliary duct dilatation seen. GALLBLADDER: Multiple shadowing stones. No evidence of gallbladder wall thickening or pericholecystic free fluid. Negative Finney's sign. Hyperechoic foci with comet tail artifacts in the gallbladder wall, favored to represent adenomyomatosis. COMMON BILE DUCT: Normal in caliber measuring 0.4 cm in diameter. RIGHT KIDNEY: Normal. No hydronephrosis. No renal calculi or focal parenchymal lesions. The kidney measures 11.2 cm in maximum dimension. LEFT KIDNEY: Normal. No hydronephrosis. No renal calculi or focal parenchymal lesions. The kidney measures 11.4 cm in maximum dimension. SPLEEN: Normal. The spleen measures 10.2 cm in maximum dimension. FREE FLUID: None. US/US abdomen complete IMPRESSION: 1. Hepatomegaly with increased parenchymal echogenicity suggesting hepatic steatosis or hepatocellular disease. 2. Cholelithiasis with no sonographic evidence of acute cholecystitis. 3. Gallbladder adenomyomatosis.
[2023-02-15 08:55] LABS: H Pylori Breath Test Negative (Negative)
== END 2023-02-13 09:03 | disposition home or self-care (01) ==
LOC: HO.US 09:02
PROVIDERS: PCP Family Medicine; Visit Provider Physician Assistant Surgical
DX: K80.20 Calculus of gallbladder without cholecystitis without obstruction (principal); E66.9 Obesity, unspecified
CPT/HCPCS: 36415; 76700; 83013

== ENCOUNTER → 2023-02-20 08:05 | Outpatient (BNVA) | payer OTHER, SELFPAY | PROVIDERS: PCP Family Medicine; Visit Provider Surgery | DX: Z13.89 Encounter for screening for other disorder (principal) ==

== ENCOUNTER → 2023-03-15 07:57 | Outpatient (BNVA) | payer OTHER, SELFPAY | PROVIDERS: PCP Family Medicine; Visit Provider Surgery | DX: Z13.89 Encounter for screening for other disorder (principal) ==

== ENCOUNTER → 2023-04-12 15:32 | Outpatient (BNVA) | payer OTHER, SELFPAY | PROVIDERS: PCP Family Medicine; Visit Provider Physician Assistant Surgical ==

== ENCOUNTER 2023-08-23 09:04 | Outpatient (AMB) | payer OTHER, SELFPAY ==
--- NOTE | 2023-08-23 09:06 | A.OFFVIS_ITS ---
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 Presents for 1 year post op visit. Weight today is 203.8 pounds, with a BMI of 36.7. There has been a 73.8 pound weight loss,(initial weight 277.6 pounds) since starting the program on 02/15/22 reflecting a 26.5% total body weight loss and a weight loss of 41.2 pounds since surgery (operative weight 245 pounds) reflecting a 16.8% TBWL since surgery.? No complaints of nausea, emesis, abdominal pain or reflux. Reports infrequent but normal bowel movements every 1- 2 days and uses stool softeners regularly.? Overall feeling very well.? Goal is to improve her weight loss, with a goal of 150-160 pounds Taking Opurity bariatric MVI 2 daily and 1 celebrate jacobo+D daily based on recc from RD. Present meal plan includes: Protein 70-80 gm macedonian yogurt 2 oz protein and 1/2 cottage cheeese baby bel cheese 6 forks meat and 2 forks veg baby dewitt cheese 6 forks protein/veg Drinking 64 oz water daily Exercise routine includes: walking 2 miles daily, 300-350 calories Any post op complications: none CHICA: still using CPAP but titrating down, f/u pulm May DM: never HTN: resolved Hyperlipidemia: never GERD:?0-5 scale ??0 = no symptoms ??1 = symptoms noticeable but not bothersome 2 =symptoms bothersome but not daily ? 3 = symptoms bothersome and daily 4 = symptoms affect daily activities 5 = symptoms are incapacitating, unable to do daily activities ? How bad is the heartburn: 1 ? Heartburn while lying down: 0 ? Heartburn when standing up: 0 ? Heartburn after meals: 0 ? Does heartburn change your diet: 0 ? Does heartburn wake you up from sleep: 0 ? Do you have difficulty swallowin ? Do you have pain with swallowin ? If you take medicine for your reflux, does this affect your daily life: 0 Satisfaction with present condition - satisfied or not satisfied: satisfied [facility] Medical History Environmental allergies History of COVID-19 History of Lyme disease Hypothyroidism Sleep apnea treated with nocturnal BiPAP Surgical History History of carpal tunnel release History of nasal surgery Hx of section Family History Mother Hypertension CHF (congestive heart failure) Father Hypertension Renal cancer Social History Household Members: Family Housing: House Are you a primary client care coordinator to a significant other at home: No Do you presently have visiting nurse or other home services: No Alcohol intake: current Alcohol intake frequency: holidays/special occasions only Patient Tobacco Use Status: Never used Tobacco Second Hand Smoke Exposure: No Physical Exam Vital Signs: Last Vital Signs Temp 97.8 F 08/23/23 09:10 Pulse 85 08/23/23 09:10 BP 129/68 08/23/23 09:10 Pulse Ox 99 08/23/23 09:10 Oxygen Delivery Method Room Air 08/23/23 09:10 BMI result Body Mass Index 36.7 Const General: cooperative and no acute distress Orientation/consciousness: patient oriented x3 Resp Effort & Inspection: normal respiratory effort Auscultation: clear to auscultation bilaterally Cardio Rate: regular rate Rhythm: regular rhythm GI Inspection: Yes normal to inspection and Yes incision (well healed) Palpation (GI): Soft to palpation and no masses Neuro General: patient oriented x3 Assessment & Plan Assessment & Plan (1) Obesity (BMI 30-39.9): Code(s): E66.9 - Obesity, unspecified Plan: check year labs discussed exercise as critical to goal 75gm protein daily rtc 6 weeks Orders: Orders IRON PROFILE Today E03.9 - Hypothyroidism, unspecified, E66.9 - Obesity, unspecified, Z90.3 - Acquired absence of stomach [part of] Vitamin B12 and Folate Today E03.9 - Hypothyroidism, unspecified, E66.9 - Obesity, unspecified, Z90.3 - Acquired absence of stomach [part of] Vitamin A Today E03.9 - Hypothyroidism, unspecified, E66.9 - Obesity, unspecified, Z90.3 - Acquired absence of stomach [part of] C Reactive Protein Today E03.9 - Hypothyroidism, unspecified, E66.9 - Obesity, unspecified, Z90.3 - Acquired absence of stomach [part of] Vitamin D 25-OH Total Today E03.9 - Hypothyroidism, unspecified, E66.9 - Obesity, unspecified, Z90.3 - Acquired absence of stomach [part of] Insulin Today E03.9 - Hypothyroidism, unspecified, E66.9 - Obesity, unspecified, Z90.3 - Acquired absence of stomach [part of] Lipid Panel Today E03.9 - Hypothyroidism, unspecified, E66.9 - Obesity, unspecified, Z90.3 - Acquired absence of stomach [part of] Complete Blood Count Auto Diff Today E03.9 - Hypothyroidism, unspecified, E66.9 - Obesity, unspecified, Z90.3 - Acquired absence of stomach [part of] Zinc Today E03.9 - Hypothyroidism, unspecified, E66.9 - Obesity, unspecified, Z90.3 - Acquired absence of stomach [part of] Vitamin B1 Today E03.9 - Hypothyroidism, unspecified, E66.9 - Obesity, unspecified, Z90.3 - Acquired absence of stomach [part of] Ferritin Today E03.9 - Hypothyroidism, unspecified, E66.9 - Obesity, unspecified, Z90.3 - Acquired absence of stomach [part of] PTHI Today E03.9 - Hypothyroidism, unspecified, E66.9 - Obesity, unspecified, Z90.3 - Acquired absence of stomach [part of] TSH reflex Free T4 Today E03.9 - Hypothyroidism, unspecified, E66.9 - Obesity, unspecified, Z90.3 - Acquired absence of stomach [part of] Hemoglobin A1c Today E03.9 - Hypothyroidism, unspecified, E66.9 - Obesity, unspecified, Z90.3 - Acquired absence of stomach [part of] Basic Metabolic Panel Today E03.9 - Hypothyroidism, unspecified, E66.9 - Obesity, unspecified, Z90.3 - Acquired absence of stomach [part of] Coding Level of Care Code Est Pt Level 4 (02056) Diagnoses Obesity (BMI 30-39.9) E66.9 Time Spent (min) 40
[2023-08-23 09:10] VITALS: BP 129/68; PULSE 85; TEMP 36.6; O2SAT 99; BMI 36.7
== END 2023-08-23 14:37 | disposition home or self-care (01) ==
PROVIDERS: PCP Family Medicine; Visit Provider Physician Assistant Surgical
DX: E66.9 Obesity, unspecified (principal); Z68.36 Body mass index [BMI] 36.0-36.9, adult; Z90.3 Acquired absence of stomach [part of]; Z98.84 Bariatric surgery status
CPT/HCPCS: 99214

== ENCOUNTER 2023-08-23 09:04 | Outpatient (REF) | payer OTHER, SELFPAY ==
[2023-08-23 10:06] LABS: MANUAL DIFF FLAG NO
[2023-08-23 10:31] LABS: Basophils Percent Auto 0.9 % (0-2); Eosinophils Absolute Auto 0.2 X10*3/uL (0.0-0.4); Eosinophils Percent Auto 4.4 % (0-4); Hematocrit 38.6 % (37.0-47.0); Hemoglobin 12.1 g/dl (12.0-16.0); Imm Gran Abs Auto 0.01 X10*3/uL (0.00-0.03); Imm Gran Pct Auto 0.2 % (0.0-0.4); Lymphocytes Percent Auto 46.3 % (20-40); Mean Corpuscular HGB Conc 31.3 g/dl (31.0-35.0); Mean Corpuscular Hemoglobin 25.9 pg (27.0-33.0); Mean Corpuscular Volume 82.7 fL (80.0-98.0); Mean Platelet Volume 9.6 fL (9.4-12.3); Monocytes Absolute Auto 0.4 X10*3/uL (0.1-1.2); Monocytes Percent Auto 8.8 % (2-11); Neutrophils Absolute Auto 1.7 x10*3/uL (2.0-8.3); Neutrophils Percent Auto 39.4 % (45-73); Platelet Count 235 X10*3/uL (160-400); Red Blood Count 4.67 X10*6/uL (4.20-5.50); Red Cell Distribution Width 14.6 % (11.0-16.0); White Blood Count 4.3 X10*3/uL (4.8-10.8)
[2023-08-23 10:40] LABS: Estimated Average Glucose 105 mg/dL; Hemoglobin A1c % 5.3 % (<6.0)
[2023-08-23 11:04] LABS: Anion Gap 15 (12-20); Blood Urea Nitrogen 12 mg/dL (9-16); C Reactive Protein 0.11 mg/dL (< or = 0.50); Calcium 9.3 mg/dL (8.4-10.2); Carbon Dioxide 27 mmol/L (22-29); Chloride 102 mmol/L (96-108); Cholesterol 235 mg/dL (<200); Estimated Glomerular Filt Rate > 60; Glucose Random 83 mg/dL (60-115); HDL Cholesterol 77 mg/dL (>40); Iron 40 mcg/dL (30-160); LDL Cholesterol Calculated 143 mg/dL (<100); Percent Iron Saturation 9 % (15-50); Sodium 140 mmol/L (135-145); Total Iron Binding Capacity 443 mcg/dL (228-428); Triglycerides 79 mg/dL (<150); Unsaturated Iron Binding 403 ug/dL
[2023-08-23 11:24] LABS: Ferritin 17 ng/mL (10-250); Insulin 5 uU/mL (2-29); TSH reflex Free T4 1.12 uIU/mL (0.32-4.0); Vitamin D 25-OH Total 70.4 ng/mL (>30)
[2023-08-23 11:29] LABS: Folate 14.6 ng/mL (> or = 4.0); Vitamin B12 1633 pg/mL (200-900)
[2023-08-26 14:38] LABS: Calcium (PTHI) 9.6 mg/dL (8.6-10.2); PTHI 31 pg/mL (16-77)
[2023-08-27 06:39] LABS: Zinc 119 mcg/dL (60-130)
[2023-08-29 23:13] LABS: Vitamin A 52 mcg/dL (38-98)
[2023-08-30 05:59] LABS: Vitamin B1 11 nmol/L (8-30)
== END 2023-08-23 09:05 | disposition home or self-care (01) ==
LOC: HO.LAB 09:04
PROVIDERS: PCP Family Medicine; Visit Provider Physician Assistant Surgical
DX: E66.9 Obesity, unspecified (principal); E03.9 Hypothyroidism, unspecified; Z90.3 Acquired absence of stomach [part of]; Z68.36 Body mass index [BMI] 36.0-36.9, adult
CPT/HCPCS: 36415; 80048; 80061; 82306; 82607; 82728; 82746; 83036; 83525; 83540; 83970; 84425; 84443; 84590; 84630; 85025; 86140

== ENCOUNTER 2023-09-26 16:07 | Outpatient (AMB) | payer OTHER, SELFPAY ==
--- NOTE | 2023-09-26 16:33 | A.OFFWM_ITS ---
Intake Intake Visit Reasons: VIDEO PO LSG 07/20/22 Allergies No Known Allergies Allergy (Verified 08/23/23 09:09) [facility] Medical History Environmental allergies History of COVID-19 History of Lyme disease Hypothyroidism Sleep apnea treated with nocturnal BiPAP Surgical History History of carpal tunnel release History of nasal surgery Hx of section Family History Mother Hypertension CHF (congestive heart failure) Father Hypertension Renal cancer Social History Household Members: Family Housing: House Are you a primary animal care worker to a significant other at home: No Do you presently have visiting nurse or other home services: No Alcohol intake: current Alcohol intake frequency: holidays/special occasions only Patient Tobacco Use Status: Never used Tobacco Second Hand Smoke Exposure: No Behavioral Health Assessment Weight Management Therapy Therapy Notes Details Patient is one month post gastric sleeve surgery. She states that she has been struggling since the summer to keep engaging in the healthy habits she has been doing. Starting to go back to old patterns of behavior. She feels very angry with herself and does not understand why she is sabotaging herself. Pt is looking to improve her energy levels and health. She can no longer keep up with her active family. Pt stated that she she has struggled with her weight most of her life. Pt is currently not in therapy and in the past she saw someone through her primary care doctor however did not work out. Also had been given Lexapro at one point as well for depression. Pt has no history of inpatient admissions for mental health issues, no drug or alcohol problems. No hx of self harming behaviors or suicide attempts. Presenting Concerns Referral Source provider Reason for referral weight loss surgery evaluation Precipitating Event obesity Living Situation Current Living Situation Own At risk of losing current housing? No Satisfied with current living situation? Yes Comments Lives with her of 22 years, two daughters ages 19, and 14 year old. Food/Weight/Diet Expectations of change weight loss and maintenance., increase energy History/Relationship with food Pt describes herself as an emotional eater. Mad, sad, bored, bad days, she would binge with something salty or sweet. Pt stated that she would make a stop on the way home to buy food to binge on and then make another stop to get rid of the evidence in the trash due to feelings of shame. History/Relationship with weight Currently at her heaviest and was able to maintain healthy weight until she got and had kids. History/Relationship with dieting keto, Atkins, Intermittent Fasting, exercise, [place]. hypnosis, lost 30lbs about 4 years ago. Binge Eating Do you frequently eat large amounts of food in short periods of time, not feeling physically hungry? Yes Do you feel out of control when you eat a large amount of food in a short period of time? Yes Do you eat large amounts of food rapidly and typically alone? Yes Night Eating Do you wake up at least once during the night to eat? No If you wake up in the night, do you find that it is necessary to eat something in order to fall back asleep? No Do you have little or no appetite in the morning and feel very hungry in the evening, often overeating between dinner and when you go to bed? No Social History Family history and relationship Pt was raised in [place] by her mother, father, and older sister, described upbringing as loving and supportive. Grew up biking, fishing, playing, eating dinner together. 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 Mormon/Spirituality not currently Cultural/Ethnic information Legal Involvement and History Current or historical involvement with the legal system? none Education Highest grade completed registered nurse Preferred learning style Auditory, Verbal, Written, Learn by doing and Visual Currently enrolled in educational program? No Interested in further educational program? 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 No Meaningful activities see above Financial Situation Describe current financial situation Comfortable Financial assistance? None Service Service? No Mental Health and Addiction Treatment Current/Past substance abuse? No Pain Screening Current pain? No Pain in the last few months? No Medications Is the patient compliant with medications? No Does the patient have Bocanegra Guardian in place? Not applicable Assessment & Plan Assessment & Plan (1) Binge-eating disorder, mild: Code(s): F50.81 - Binge eating disorder (2) CHICA (obstructive sleep apnea): Code(s): G47.33 - Obstructive sleep apnea (adult) (pediatric) Plan Pt is one year post surgery and struggling with old eating habits (emotional/overeating). She completed the busting excuses mini course and stated that she really sees herself doing all of those things. She would be appropriate for group setting and 1:1 therapy. Telehealth Telehealth Location of provider rendering services: other Location of patient: other Patient Identification confirmed using: Name, : Yes Telehealth method: video Patient verbally consented to treatment: Yes Patient verbally consented to billing insurance company: Yes Patient informed of any privacy concerns related to visit: Yes Minutes spent on Phone/Video with Pt.: 45 Coding Level of Care Code Tele Psytx 45 mins (89007) Diagnoses Binge-eating disorder, mild F50.81 CHICA (obstructive sleep apnea) G47.33 Time Spent (min) 45
== END 2023-09-26 16:33 | disposition home or self-care (01) ==
LOC: HO.HBST 16:07
PROVIDERS: PCP Family Medicine; Visit Provider Counselor Mental Health
DX: F50.81 Binge eating disorder (principal); G47.33 Obstructive sleep apnea (adult) (pediatric)
CPT/HCPCS: 90834

== ENCOUNTER → 2023-09-26 16:07 | Outpatient (BNVA) | payer OTHER, SELFPAY | PROVIDERS: PCP Family Medicine; Visit Provider Counselor Mental Health ==

== ENCOUNTER 2023-10-04 11:32 | Outpatient (AMB) | payer OTHER, SELFPAY ==
--- NOTE | 2023-10-04 11:36 | MHC.OFFVISWM ---
Intake VS Expanded 10/04/23 11:37 Height 5 ft 2.5 in Weight 202 lb 4 oz BMI 36.4 Intake Visit Reasons: (tv) PO LSG 07/20/22 Allergies No Known Allergies Allergy (Verified 08/23/23 09:09) HPI HPI Comments History of Present Illness Details This?a?48?yo female who is s/p LSG without hiatal hernia repair on?07/20/22. Presents for 1 year 2.5 month post op visit. Weight today is 202.4 pounds, with a BMI of 36.4. There has been a 75.2 pound weight loss,(initial weight 277.6 pounds) since starting the program on 02/15/22 reflecting a 26.7% total body weight loss and a weight loss of 42.6 pounds since surgery (operative weight 245 pounds) reflecting a 17% TBWL since surgery.? No complaints of nausea, emesis, abdominal pain or reflux. Reports infrequent but normal bowel movements every 1-2 days and uses stool softeners regularly.? Overall feeling very well.? Goal is to improve her weight loss, with a goal of 150-160 pounds She met with our therapist and listened to a podcast discussing flipping her mindset to accomplish her goals. Her mental struggle is being addressed with therapy and her social support. Taking Opurity bariatric MVI 2 daily and 1 celebrate jacobo+D daily based on recc from RD. Present meal plan includes: Protein 70-80 gm turkmen yogurt 3 forks protein and 3 forks veg 2 scoops orgain powder mixed in almond milk 5 forks protein/veg Drinking 64 oz water daily Exercise routine includes: weight training 2 x per week. walking 2 miles daily, 300-350 calories [facility] Medical History Hypothyroidism Environmental allergies History of COVID-19 History of Lyme disease Sleep apnea treated with nocturnal BiPAP Surgical History History of nasal surgery History of carpal tunnel release Hx of section Family History Mother Hypertension CHF (congestive heart failure) Father Hypertension Renal cancer Social History Household Members: Family Housing: House Are you a primary healthcare economics manager to a significant other at home: No Do you presently have visiting nurse or other home services: No Alcohol intake: current Alcohol intake frequency: holidays/special occasions only Patient Tobacco Use Status: Never used Tobacco Second Hand Smoke Exposure: No Assessment & Plan Assessment & Plan (1) Obesity (BMI 30-39.9): Code(s): E66.9 - Obesity, unspecified Plan: Again discussed the exercise component being a limiting factor. meal plan is balanced rtc 3 weeks. Telehealth Telehealth Location of provider rendering services: practice address Location of patient: address on file Patient Identification confirmed using: Name, : Yes Telehealth method: voice only Patient verbally consented to treatment: Yes Patient verbally consented to billing insurance company: Yes Patient informed of any privacy concerns related to visit: Yes Minutes spent on Phone/Video with Pt.: 20 Coding Level of Care Code Tele Est Pt Level 3 (19565) Diagnoses Obesity (BMI 30-39.9) E66.9
[2023-10-04 11:37] VITALS: BMI 36.4
== END 2023-10-04 11:52 | disposition home or self-care (01) ==
LOC: HO.HBS 11:32
PROVIDERS: PCP Family Medicine; Visit Provider Physician Assistant Surgical
DX: E66.9 Obesity, unspecified (principal)
CPT/HCPCS: 99213

== ENCOUNTER → 2023-10-04 11:32 | Outpatient (BNVA) | payer OTHER, SELFPAY | PROVIDERS: PCP Family Medicine; Visit Provider Physician Assistant Surgical | DX: E66.9 Obesity, unspecified (principal); E03.9 Hypothyroidism, unspecified; Z90.3 Acquired absence of stomach [part of] ==

== ENCOUNTER 2023-10-28 14:45 | Outpatient (AMB) | payer OTHER, SELFPAY ==
[2023-10-28 13:55] VITALS: BMI 37.0
--- NOTE | 2023-10-28 13:55 | A.OFFVIS_ITS ---
Intake VS Expanded 10/28/23 13:55 Height 5 ft 2.5 in Weight 205 lb 6 oz BMI 37.0 Body Fat % 49.2 Body Fat Mass 101.1 Fat Free Mass 104.3 Visceral Fat Rating 13.5 Body Water % 39.1 Body Water Mass 72.1 Muscle Mass/Score 98.1 Basal Metabolic Rate/Score 1,536 Intake Visit Reasons: (tv) PO LSG 07/20/22 Rug Repairer Required: No Allergies No Known Allergies Allergy (Verified 08/23/23 09:09) Medication List - Last Reconciled 10/28/23 by RADHA Gracia fexofenadine (Antoinette Allergy) 180 mg PO DAILY norethindrone acetate 5 mg PO BID solriamfetol (Sunosi) 75 mg PO DAILY thyroid (pork) ([place] Thyroid) 90 mg PO DAILY HPI HPI Comments History of Present Illness Details This?a?48?yo female who is s/p LSG without hiatal hernia repair on?07/20/22. Presents for 1 year 3 month post op visit. Weight today is 205.6 pounds, with a BMI of 37. There has been a 72 pound weight loss,(initial weight 277.6 pounds) since starting the program on 02/15/22 reflecting a 25.9% total body weight loss and a weight loss of 39.4 pounds since surgery (operative weight 245 pounds) reflecting a 16% TBWL since surgery.? No complaints of nausea, emesis, abdominal pain or reflux. Reports infrequent but normal bowel movements every 1-2 days and uses stool softeners regularly.? Overall feeling very well.? She was experiencing menometrorrhagia and required admission to [facility] and tx 2 u PRBC. She has been started on high dose norethidrone by her software development advisor and the bleeding has since stopped but she has had significant water retention since. She has f/u w parasitology teacher on this . She still has significant fatigue from her anemia. She had her HGB incr to 8.3 from 6.6 She is still able to walk outside but is significantly fatigued after. Taking Opurity bariatric MVI 2 daily and 1 celebrate jacobo+D daily based on recc from RD. Present meal plan includes: Protein 70-80 gm andorran yogurt 3 forks protein and 3 forks veg 2 scoops orgain powder mixed in almond m ilk 5 forks protein/veg Drinking 64 oz water daily Exercise routine includes: walking 2 miles daily, 300-350 calories PFSH Medical History Hypothyroidism Environmental allergies History of COVID-19 History of Lyme disease Sleep apnea treated with nocturnal BiPAP Surgical History History of nasal surgery History of carpal tunnel release Hx of section Family History Mother Hypertension CHF (congestive heart failure) Father Hypertension Renal cancer Household Members: Family Housing: House Are you a primary care program resident to a significant other at home: No Do you presently have visiting nurse or other home services: No Alcohol intake: current Alcohol intake frequency: holidays/special occasions only Patient Tobacco Use Status: Never used Tobacco Second Hand Smoke Exposure: No Review of Systems Const All systems reviewed & are unremarkable except as noted in HPI and below Assessment & Plan Assessment & Plan (1) Status post sleeve gastrectomy: Code(s): Z90.3 - Acquired absence of stomach [part of] Plan: Patient is dealing with abnormal uterine bleeding. She is scheduled to follow- up with her photo finish photographer this coming . She has had significant fatigue as a result of the bleeding causing anemia. She is slowly recovering with the use of oral hormonal therapy. She will continue to increase walking as she is able and subsequently exercise. Continue current meal plan. Follow-up in the office in 5 weeks. Telehealth Telehealth Location of provider rendering services: practice address Location of patient: address on file Patient Identification confirmed using: Name, : Yes Telehealth method: voice only Patient verbally consented to treatment: Yes Patient verbally consented to billing insurance company: Yes Patient informed of any privacy concerns related to visit: Yes Minutes spent on Phone/Video with Pt.: 15 Coding Level of Care Code Tele Est Pt Level 3 (45535) Diagnoses Status post sleeve gastrectomy Z90.3
== END 2023-10-28 14:57 | disposition home or self-care (01) ==
LOC: HO.HBS 14:45
PROVIDERS: PCP Family Medicine; Visit Provider Physician Assistant Surgical
DX: E66.9 Obesity, unspecified (principal); Z68.37 Body mass index [BMI] 37.0-37.9, adult; Z90.3 Acquired absence of stomach [part of]; Z98.84 Bariatric surgery status
CPT/HCPCS: 99213

== ENCOUNTER → 2023-10-28 14:45 | Outpatient (BNVA) | payer OTHER, SELFPAY | PROVIDERS: PCP Family Medicine; Visit Provider Physician Assistant Surgical | DX: E66.9 Obesity, unspecified (principal); E03.9 Hypothyroidism, unspecified; Z90.3 Acquired absence of stomach [part of] ==

== ENCOUNTER → 2023-12-04 20:16 | Outpatient (BNVA) | payer OTHER, SELFPAY | PROVIDERS: PCP Family Medicine; Visit Provider Counselor Mental Health ==

== ENCOUNTER 2023-12-16 15:27 | Outpatient (AMB) | payer OTHER, SELFPAY ==
[2023-12-16 08:35] VITALS: BMI 39.1
--- NOTE | 2023-12-16 08:35 | MHC.OFFVISWM ---
Intake VS Expanded 12/16/23 08:35 Height 5 ft 2.5 in Weight 217 lb BMI 39.1 Intake Visit Reasons: (tv) PO LSG 07/20/22 Saddle And Harness Maker Required: No Allergies No Known Allergies Allergy (Verified 08/23/23 09:09) Medication List - Last Reconciled 12/16/23 by RADHA Gracia fexofenadine (Antoinette Allergy) 180 mg PO DAILY norethindrone ac-eth estradiol 1-20 mg-mcg (Junel) 1 tab PO DAILY solriamfetol (Sunosi) 75 mg PO DAILY thyroid (pork) ([place] Thyroid) 90 mg PO DAILY HPI HPI Comments History of Present Illness Details This?a?48?yo female who is s/p LSG without hiatal hernia repair on?07/20/22. Presents for 1 year 5 month post op visit. Weight today is 217 pounds, with a BMI of 39.1. There has been a 60.6 pound weight loss,(initial weight 277.6 pounds) since starting the program on 02/15/22 reflecting a 21.8% total body weight loss and a weight loss of 28 pounds since surgery (operative weight 245 pounds) reflecting a 11.4% TBWL since surgery.? No complaints of nausea, emesis, abdominal pain or reflux. Reports infrequent but normal bowel movements every 1-2 days and uses stool softeners regularly.? Overall feeling very well.? She was experiencing menometrorrhagia and required admission to [facility] and tx 2 u PRBC. She was started on OCP by her sales support assistant and her menorrhagia has improved. She has f/u w alarm field technician in the next month. She was made aware that the new med Junel can make cholelithiasis worse. She started her bachelor program online in December while working. She is getting less sleep and trying to find the balance for her school/work/family life. She also states she has been stress eating. Taking Opurity bariatric MVI 2 daily and 1 celebrate jacobo+D daily based on recc from RD. Present meal plan includes: HB egg or RD Premier protein shake 4-6 forks leftover protein and veg cheese stick, crackers, handful of chips or cheese-its 6 forks protein and 6 veg SF Popsicle sometimes Drinking 80 oz water daily Exercise routine includes: none in the last 2 weeks. PFSH Medical History Hypothyroidism Environmental allergies History of COVID-19 History of Lyme disease Sleep apnea treated with nocturnal BiPAP Surgical History History of nasal surgery History of carpal tunnel release Hx of section Family History Mother Hypertension CHF (congestive heart failure) Father Hypertension Renal cancer Social History Household Members: Family Housing: House Are you a primary primary care nurse practitioner to a significant other at home: No Do you presently have visiting nurse or other home services: No Alcohol intake: current Alcohol intake frequency: holidays/special occasions only Patient Tobacco Use Status: Never used Tobacco Second Hand Smoke Exposure: No Assessment & Plan Assessment & Plan (1) Obesity (BMI 30-39.9): Code(s): E66.9 - Obesity, unspecified Plan: Discussed the importance of following a plan and incorporating exercise again. We will change the meal plan. Two eggs with spinach or Kale or 1/2 ready to drink Premier protein shake with 6 oz of unsweetened almond milk Meal with 6 forks of protein and 6 forks of vegetables Zone perfect bar Repeat meal Discussed the critical importance of exercise and burning 300 calories per day. She will send me her weight weekly, text with any questions, return to clinic in late January for her 18 month postoperative follow-up at which point we will check standard labs. Telehealth Telehealth Location of provider rendering services: practice address Location of patient: address on file Patient Identification confirmed using: Name, : Yes Telehealth method: voice only Patient verbally consented to treatment: Yes Patient verbally consented to billing insurance company: Yes Patient informed of any privacy concerns related to visit: Yes Minutes spent on Phone/Video with Pt.: 20 Coding Level of Care Code Tele Est Pt Level 3 (34611) Diagnoses Obesity (BMI 30-39.9) E66.9 Time Spent (min) 25
== END 2023-12-16 15:29 | disposition home or self-care (01) ==
LOC: HO.HBS 15:27
PROVIDERS: PCP Family Medicine; Visit Provider Physician Assistant Surgical
DX: E66.9 Obesity, unspecified (principal)
CPT/HCPCS: 99213

== ENCOUNTER → 2023-12-16 15:27 | Outpatient (BNVA) | payer OTHER, SELFPAY | PROVIDERS: PCP Family Medicine; Visit Provider Physician Assistant Surgical | DX: E66.9 Obesity, unspecified (principal); E03.9 Hypothyroidism, unspecified; Z90.3 Acquired absence of stomach [part of] ==

== ENCOUNTER 2024-01-24 08:35 | Outpatient (REF) | payer OTHER, SELFPAY ==
[2024-01-24 09:29] LABS: MANUAL DIFF FLAG NO
[2024-01-24 09:55] LABS: Basophils Absolute Auto 0.1 X10*3/uL (0.0-0.2); Basophils Percent Auto 0.9 % (0-2); Eosinophils Absolute Auto 0.3 X10*3/uL (0.0-0.4); Eosinophils Percent Auto 4.9 % (0-4); Hematocrit 31.2 % (37.0-47.0); Hemoglobin 9.4 g/dl (12.0-16.0); Imm Gran Abs Auto 0.01 X10*3/uL (0.00-0.03); Imm Gran Pct Auto 0.2 % (0.0-0.4); Lymphocytes Absolute Auto 2.1 X10*3/uL (1.2-4.9); Lymphocytes Percent Auto 35.6 % (20-40); Mean Corpuscular HGB Conc 30.1 g/dl (31.0-35.0); Mean Corpuscular Hemoglobin 21.6 pg (27.0-33.0); Mean Corpuscular Volume 71.6 fL (80.0-98.0); Mean Platelet Volume 9.5 fL (9.4-12.3); Monocytes Absolute Auto 0.5 X10*3/uL (0.1-1.2); Monocytes Percent Auto 7.8 % (2-11); Neutrophils Absolute Auto 2.9 x10*3/uL (2.0-8.3); Neutrophils Percent Auto 50.6 % (45-73); Platelet Count 272 X10*3/uL (160-400); Red Blood Count 4.36 X10*6/uL (4.20-5.50); White Blood Count 5.8 X10*3/uL (4.8-10.8)
[2024-01-24 10:27] LABS: Anion Gap 14 (12-20); Blood Urea Nitrogen 14 mg/dL (9-16); C Reactive Protein 0.56 mg/dL (< or = 0.50); Calcium 9.4 mg/dL (8.4-10.2); Carbon Dioxide 25 mmol/L (22-29); Chloride 106 mmol/L (96-108); Cholesterol 164 mg/dL (<200); Estimated Glomerular Filt Rate > 60; Glucose Random 92 mg/dL (60-115); HDL Cholesterol 74 mg/dL (>40); Iron 22 mcg/dL (30-160); LDL Cholesterol Calculated 78 mg/dL (<100); Percent Iron Saturation 5 % (15-50); Potassium 4.2 mmol/L (3.3-5.1); Sodium 141 mmol/L (135-145); Total Iron Binding Capacity 474 mcg/dL (228-428); Triglycerides 63 mg/dL (<150); Unsaturated Iron Binding 452 ug/dL
[2024-01-24 10:43] LABS: Estimated Average Glucose 105 mg/dL; Ferritin 4 ng/mL (10-250); Hemoglobin A1c % 5.3 % (<6.0); TSH reflex Free T4 1.56 uIU/mL (0.32-4.0); Vitamin D 25-OH Total 54.4 ng/mL (>30)
[2024-01-24 11:07] LABS: Insulin 8 uU/mL (2-29)
[2024-01-24 11:16] LABS: Folate 12.6 ng/mL (> or = 4.0); Vitamin B12 842 pg/mL (200-900)
[2024-01-28 00:54] LABS: Zinc 71 mcg/dL (60-130)
[2024-01-28 16:08] LABS: Vitamin B1 11 nmol/L (8-30)
[2024-01-29 01:19] LABS: Vitamin A 62 mcg/dL (38-98)
== END 2024-01-24 08:36 | disposition home or self-care (01) ==
LOC: HO.LAB 08:35
PROVIDERS: PCP Family Medicine; Visit Provider Physician Assistant Surgical
DX: E66.9 Obesity, unspecified (principal); E03.9 Hypothyroidism, unspecified; Z90.3 Acquired absence of stomach [part of]
CPT/HCPCS: 36415; 80048; 80061; 82306; 82607; 82728; 82746; 83036; 83525; 83540; 84425; 84443; 84590; 84630; 85025; 86140

== ENCOUNTER 2024-01-24 08:35 | Outpatient (AMB) | payer OTHER, SELFPAY ==
--- NOTE | 2024-01-24 08:37 | A.OFFVIS_ITS ---
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 Presents for 1 year 6 month post op visit. Weight today is 223 pounds, with a BMI of 40.1. There has been a 54.6 pound weight loss,(initial weight 277.6 pounds) since starting the program on 02/15/22 reflecting a 19.6% total body weight loss and a weight loss of 22 pounds since surgery (operative weight 245 pounds) reflecting a 8.9% TBWL since surgery.? No complaints of nausea, emesis, abdominal pain or reflux. Reports infrequent but normal bowel movements every 1-2 days and uses stool softeners regularly.? Overall feeling very well.? She was experiencing menometrorrhagia and required admission to [facility] [place] and tx 2 u PRBC. She was started on OCP by her shipping support and her menorrhagia has improved. 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 She was made aware that the new med Junel can make cholelithiasis worse. She started her bachelor program online in December while working. She is getting less sleep and trying to find the balance for her school/work/family life. She also states she has been stress eating. Taking Opurity bariatric MVI 2 daily and 1 celebrate jacobo+D daily based on recc from RD. Present meal plan includes: Two eggs with spinach or Kale or 1/2 ready to drink Premier protein shake with 6 oz of unsweetened almond milk Meal with 6 forks of protein and 6 forks of vegetables Zone perfect bar Repeat meal Drinking 80 oz water daily Exercise routine includes: none in the last 2 weeks. Any post op complications: None CHICA: still using CPAP but titrating down, f/u pulm May DM: never HTN: resolved Hyperlipidemia: never GERD:?0-5 scale ??0 = no symptoms ??1 = symptoms noticeable but not bothersome 2 =symptoms bothersome but not daily ? 3 = symptoms bothersome and daily 4 = symptoms affect daily activities 5 = symptoms are incapacitating, unable to do daily activities ? How bad is the heartburn: 0 ? Heartburn while lying down: 0 ? Heartburn when standing up: 0 ? Heartburn after meals: 0 ? Does heartburn change your diet: 0 ? Does heartburn wake you up from sleep: 0 ? Do you have difficulty swallowin ? Do you have pain with swallowin ? If you take medicine for your reflux, does this affect your daily life: 0 Satisfaction with present condition - satisfied or not satisfied: dissatisfied [facility] Medical History Hypothyroidism Environmental allergies History of COVID-19 History of Lyme disease Sleep apnea treated with nocturnal BiPAP Surgical History History of nasal surgery History of carpal tunnel release Hx of section Family History Mother Hypertension CHF (congestive heart failure) Father Hypertension Renal cancer Social History Household Members: Family Housing: House Are you a primary healthcare administration intern to a significant other at home: No Do you presently have visiting nurse or other home services: No Alcohol intake: current Alcohol intake frequency: holidays/special occasions only Patient Tobacco Use Status: Never used Tobacco Second Hand Smoke Exposure: No Assessment & Plan Assessment & Plan (1) Status post sleeve gastrectomy: Code(s): Z90.3 - Acquired absence of stomach [part of] Plan: Check 18 month postop labs. She is going to discuss with her sleep medicine doctor getting off the Adderall and returning to the [place], as this seems to work much better for her. We discussed the need to at least start exercising. Following the meal plan. We will check labs as above and have her return to the office in 4-6 weeks. She was offered obesity medications such as semaglutide however without commitment, it will be ineffective. She is going to try to redefine her goals and decrease her school work load and return to healthier lifestyle. Orders: Orders Hemoglobin A1c Today E03.9 - Hypothyroidism, unspecified, Z90.3 - Acquired absence of stomach [part of] Lipid Panel Today E03.9 - Hypothyroidism, unspecified, Z90.3 - Acquired absence of stomach [part of] Zinc Today E03.9 - Hypothyroidism, unspecified, Z90.3 - Acquired absence of stomach [part of] Vitamin B1 Today E03.9 - Hypothyroidism, unspecified, Z90.3 - Acquired absence of stomach [part of] Ferritin Today E03.9 - Hypothyroidism, unspecified, Z90.3 - Acquired absence of stomach [part of] Insulin Today E03.9 - Hypothyroidism, unspecified, Z90.3 - Acquired absence of stomach [part of] Complete Blood Count Auto Diff Today E03.9 - Hypothyroidism, unspecified, Z90.3 - Acquired absence of stomach [part of] IRON PROFILE Today E03.9 - Hypothyroidism, unspecified, Z90.3 - Acquired absence of stomach [part of] Vitamin B12 and Folate Today E03.9 - Hypothyroidism, unspecified, Z90.3 - Acquired absence of stomach [part of] C Reactive Protein Today E03.9 - Hypothyroidism, unspecified, Z90.3 - Acquired absence of stomach [part of] Vitamin A Today E03.9 - Hypothyroidism, unspecified, Z90.3 - Acquired absence of stomach [part of] TSH reflex Free T4 Today E03.9 - Hypothyroidism, unspecified, Z90.3 - Acquired absence of stomach [part of] Vitamin D 25-OH Total Today E03.9 - Hypothyroidism, unspecified, Z90.3 - Acquired absence of stomach [part of] Basic Metabolic Panel Today E03.9 - Hypothyroidism, unspecified, Z90.3 - Acquired absence of stomach [part of] Coding Level of Care Code Est Pt Level 3 (16250) Diagnoses Status post sleeve gastrectomy Z90.3
[2024-01-24 08:46] VITALS: BP 124/59; PULSE 73; TEMP 36.6; O2SAT 99; BMI 40.1
== END 2024-01-24 09:09 | disposition home or self-care (01) ==
PROVIDERS: PCP Family Medicine; Visit Provider Physician Assistant Surgical
DX: E66.01 Morbid (severe) obesity due to excess calories (principal); Z68.41 Body mass index [BMI] 40.0-44.9, adult; Z90.3 Acquired absence of stomach [part of]; Z98.84 Bariatric surgery status
CPT/HCPCS: 99213